=== PATIENT | female | born 1985 | race Caucasian/White ===

== ENCOUNTER → 2017-01-02 | Outpatient (CLI) | payer MEDICAID ==
--- NOTE | 2017-01-02 19:02 | RADIOLOGY REPORT (SQ) ---
EXAM DESCRIPTION: U/S [id number] TRNABD 1GES W/ODOP COMPLETED DATE/TIME: 01/02/2017 5:17 pm REASON FOR STUDY: Z34.82 ENCOUNTER FOR SUPRVSN OF NORMAL , SECOND TRI COMPARISON: None. TECHNIQUE: Transabdominal static and realtime grayscale images acquired of the pelvis. Additional se lected spectral and color Doppler images recorded. All images stored on PACs. bHCG: Not applicable. LIMITATIONS: None. FINDINGS: FETUS: Living intrauterine . EGA: 13 weeks 0 days ERNIE: 07/10/2017 FHR: 165 beats per minute. SUBCHORIONIC BLEED: No SIZE OF BLEED: Not applicable. UTERUS: Intrauterine gestation. No masses. 10.8 x 10.5 x 11.7 cm. CERVICAL LENGTH: Not measured. Closed. RIGHT ADNEXA: The right ovary measured 34 x 13 x 19 mm. There was no mass. There was a 14 x 21 x 13 mm possible hemorrhagic cyst. No adnexal free fluid. No adnexal masses. LEFT ADNEXA: Left ovary was not identified. No adnexal free fluid. Questionable 57 x 49 x 38 mm solid mass in the left adnexa. No blood flow was seen. No peristalsis was seen. FREE FLUID: None. OTHER: No other significant finding. IMPRESSION: 1. LIVING INTRAUTERINE . EGA 13 weeks 0 days 2. Questionable left adnexal mass. Trimester of : First - 0 to 13 weeks. TECHNICAL DOCUMENTATION: JOB ID: [id number] [employer]- All Rights Reserved
== END ==
LOC: RAD 15:44
PROVIDERS: ATTEND Nurse Practitioner Women's Health
DX: Z34.82 Encounter for supervision of other normal pregnancy, second trimester (principal)
CPT/HCPCS: 76801

== ENCOUNTER 2017-07-09 16:33 | Outpatient (CLI) | payer MEDICAID ==
--- NOTE | 2017-07-09 17:14 | Non Stress Test Report ---
Non Stress Test Datetime Report Generated by CPN: 07/09/2017 17:14 DEMOGRAPHIC Test Number: 1 EGA NST: 39.4 INDICATION Indication for Study: Ordered by Provider MONITORING Monitor Explained: Monitor Explained; Test Explained; Patient Verbalized Understanding Time on Monitor: 07/09/2017 16:53 Time off Monitor: 07/09/2017 17:13 NST Duration: 20 NST INTERVENTIONS NST Interventions: PO Hydration Physician Notified NST: Ki, CNM BABY A: [id number] BABY A Movement : Present Contraction Frequency : 0 FHR Baseline : 125 Accelerations : 15X15 Decelerations : None NST Review: Meets Criteria for Reactive NST NST Review and Verified By : Roland Anand RN NST Results: Reactive NST REPORT Report Trigger: Send Report
== END 2017-07-09 17:16 | disposition home or self-care (01) ==
LOC: LC 16:33
PROVIDERS: ATTEND Obstetrics & Gynecology Gynecology
PROC: 4A1HXCZ Monitoring of Products of Conception, Cardiac Rate, External Approach (ICD-10-PCS; principal; 2017-07-09)
DX: O47.1 False labor at or after 37 completed weeks of gestation (principal); Z3A.39 39 weeks gestation of pregnancy
CPT/HCPCS: 59025

== ENCOUNTER 2017-07-11 11:34 | Outpatient (CLI) | payer MEDICAID ==
[2017-07-11] MEDS ORDERED: RINGERS SOLUTION,LACTATED 1,000 ML IV PRN (12:16)
[2017-07-11] MEDS ORDERED: RINGERS SOLUTION,LACTATED 1,000 ML IV ONE (12:16)
[2017-07-11] MEDS ORDERED: HYDROXYZINE PAMOATE 50 MG CAPSULE ONE (12:56)
[2017-07-11] MEDS ORDERED: ACETAMINOPHEN WITH CODEINE #3 TABLET ONE (12:57)
[2017-07-11] MEDS ORDERED: ACETAMINOPHEN WITH CODEINE #3 TABLET PO ONE (12:58)
[2017-07-11] MEDS ORDERED: HYDROXYZINE PAMOATE 50 MG CAPSULE PO ONE (12:58)
[2017-07-11 13:17] LABS: APPEARANCE,URINE CLOUDY; BILIRUBIN,URINE NEGATIVE (NEGATIVE); GLUCOSE, URINE NEGATIVE (NEGATIVE); KETONES,URINE NEGATIVE (NEGATIVE); LEUKOCYTE ESTERASE,URINE LARGE (NEGATIVE); NITRITE,URINE NEGATIVE (NEGATIVE); PROTEIN,URINE NEGATIVE (NEGATIVE); URINE SPECIFIC GRAVITY 1.012; UROBILINOGEN,URINE NEGATIVE mg/dL (<2.0)
[2017-07-11 13:29] LABS: URINE BARBITURATES SCREEN NEGATIVE; URINE METHADONE SCREEN NEGATIVE; URINE OPIATES LOW NEGATIVE; URINE PHENCYCLIDINE SCREEN NEGATIVE
[2017-07-11] MEDS ORDERED: ACETAMINOPHEN 650 MG SUPP.RECT PR PRN (18:09)
[2017-07-11] MEDS ORDERED: GLYCERIN/WITCH HAZEL LEAF 1 EACH MED..PAD TP PRN (18:09)
[2017-07-11] MEDS ORDERED: DIPHENHYDRAMINE HCL 25 MG CAPSULE PO PRN (18:09)
[2017-07-11] MEDS ORDERED: PROMETHAZINE HCL INJ 25 MG/1 ML VIAL IV PRN (18:09)
[2017-07-11] MEDS ORDERED: NA PHOS,M-B/NA PHOS,DI-BA (ADULT) 133 ML ENEMA PR PRN (18:09)
[2017-07-11] MEDS ORDERED: ACETAMINOPHEN WITH CODEINE #3 TABLET PO PRN ×2 (18:09)
[2017-07-11] MEDS ORDERED: PROMETHAZINE HCL 25 MG TABLET PO PRN (18:09)
[2017-07-11] MEDS ORDERED: ZOLPIDEM TARTRATE 5 MG TABLET PO PRN (18:09)
[2017-07-11] MEDS ORDERED: BENZOCAINE/MENTHOL AEROSOL SPRAY 56 ML TOP PRN (18:09)
[2017-07-11] MEDS ORDERED: PSEUDOEPHEDRINE HCL 30 MG TABLET PO PRN (18:09)
[2017-07-11] MEDS ORDERED: MAGNESIUM HYDROXIDE SUSP 30 ML UDCUP PO PRN (18:09)
[2017-07-11] MEDS ORDERED: PROMETHAZINE HCL 25 MG SUPP.RECT PR PRN (18:09)
[2017-07-11] MEDS ORDERED: OXYTOCIN/NORMAL SALINE 20 UNIT/1,000 ML RTUINJ IV PRN (18:09)
[2017-07-11] MEDS ORDERED: MEASLES,MUMPS&RUBELLA VACC/PF 0.5 ML VIAL SUBCUT PRN (18:09)
[2017-07-11] MEDS ORDERED: DIBUCAINE 1% OINTMENT 28 GM TP PRN (18:09)
[2017-07-11] MEDS ORDERED: DIPH/PERTUSS(ACELL)/TETANUS VAC/PF 0.5 ML SYR (>=10YO) IM PRN (18:09)
[2017-07-11] MEDS ORDERED: IBUPROFEN 800 MG TABLET PO SCH (22:00)
[2017-07-11] MEDS ORDERED: FAMOTIDINE 20 MG TABLET PO SCH (22:00)
[2017-07-12] MEDS ORDERED: SENNOSIDES/DOCUSATE 8.6-50 MG 1 EACH TABLET PO SCH (10:00)
[2017-07-12] MEDS ORDERED: PRENATAL VITAMIN W DHA CAPSULE PO SCH (10:00)
[2017-07-12] MEDS ORDERED: FERROUS SULFATE 325 MG TABLET PO SCH (10:00)
[2017-07-12] MEDS ORDERED: DOCUSATE SODIUM 100 MG CAPSULE PO SCH (10:00)
== END 2017-07-11 13:10 | disposition home or self-care (01) ==
LOC: LC 11:34
PROVIDERS: ATTEND Obstetrics & Gynecology
PROC: 4A1HXCZ Monitoring of Products of Conception, Cardiac Rate, External Approach (ICD-10-PCS; principal; 2017-07-11)
DX: O47.1 False labor at or after 37 completed weeks of gestation (principal); Z3A.39 39 weeks gestation of pregnancy
CPT/HCPCS: 59025; 81005; 80307; J3490

== ENCOUNTER 2017-07-11 15:05 | Inpatient (IN) | payer MEDICAID ==
--- NOTE | 2017-07-11 15:11 | Non Stress Test Report ---
Non Stress Test Datetime Report Generated by CPN: 07/11/2017 15:10 DEMOGRAPHIC EGA NST: 39.6 INDICATION Indication for Study: Other Indication for Study (NST) Other: LABOR CHECK MONITORING Monitor Explained: Monitor Explained; Test Explained; Patient Verbalized Understanding Time on Monitor: 07/11/2017 11:54 Time off Monitor: 07/11/2017 12:50 NST Duration: 56 NST INTERVENTIONS NST Interventions: PO Hydration; Reposition Patient Physician Notified NST: K ASHLEY, NCM REVIEWED STRIP BABY A Movement : Present Contraction Frequency : 8-9 FHR Baseline : 125 Accelerations : 15X15 Decelerations : None Variability : Moderate 6-25bpm NST Review: Meets Criteria for Reactive NST NST Review and Verified By : ANN MelissaT Results: Reactive NST REPORT Report Trigger: Send Report
[2017-07-11] MEDS ORDERED: RINGERS SOLUTION,LACTATED 1,000 ML IV ONE (15:32)
[2017-07-11] MEDS ORDERED: RINGERS SOLUTION,LACTATED 1,000 ML IV PRN (15:32)
[2017-07-11] MEDS ORDERED: EPHEDRINE SULFATE INJ 50 MG/1 ML AMPULE ONE (16:01)
[2017-07-11] MEDS ORDERED: MISOPROSTOL 0.2 MG TABLET ONE (16:02)
[2017-07-11] MEDS ORDERED: FENTANYL/BUPIVACAINE/NS/PF 0 MCG/0 ML RTUINJ EPI ONE (16:02)
[2017-07-11] MEDS ORDERED: BUPIVACAINE HCL 0.25 % INJ/PF (2.5 MG/1 ML) 30 ML VIAL ONE (16:02)
[2017-07-11] MEDS ORDERED: LIDOCAINE 1% INJ-PF (10 MG/ML) 30 ML SDV ONE (16:03)
[2017-07-11] MEDS ORDERED: OXYTOCIN/NORMAL SALINE 20 UNIT/1,000 ML RTUINJ ONE (16:03)
[2017-07-11 16:11] LABS: ABSOLUTE BASOPHILS # (AUTO) 0.1 10^3/uL (0.0-0.2); ABSOLUTE LYMPHOCYTES (AUTO) 1.5 10^3/uL (0.5-4.7); ABSOLUTE MONOCYTES (AUTO) 0.9 10^3/uL (0.1-1.4); ABSOLUTE NEUT (AUTO) 16.7 10^3/uL (1.7-8.2); BASOPHILS % (AUTO) 0.3 % (0-2); EOSINOPHILS % (AUTO) 0.1 % (0-6); HEMATOCRIT 34.5 % (36.0-47.0); HEMOGLOBIN 11.8 g/dL (12.0-15.5); HGB HCT DIFFERENCE 0.9; MEAN CORPUSCULAR HEMOGLOBIN 30.2 pg (27.0-33.4); MEAN CORPUSCULAR HGB CONC 34.2 g/dL (32.0-36.0); MEAN CORPUSCULAR VOLUME 88 fl (80-97); MONOCYTES % (AUTO) 4.8 % (3-13); RED BLOOD COUNT 3.91 10^6/uL (3.72-5.28); RED CELL DISTRIBUTION WIDTH 15.2 % (11.5-14.0); SEGMENTED NEUTROPHILS % (AUTO) 86.8 % (42-78); WHITE BLOOD COUNT 19.2 10^3/uL (4.0-10.5)
[2017-07-11] MEDS ORDERED: ACETAMINOPHEN WITH CODEINE #3 TABLET PO PRN ×2 (16:37)
[2017-07-11] MEDS ORDERED: DIPH/PERTUSS(ACELL)/TETANUS VAC/PF 0.5 ML SYR (>=10YO) IM PRN (16:37)
[2017-07-11] MEDS ORDERED: OXYTOCIN/NORMAL SALINE 20 UNIT/1,000 ML RTUINJ IV PRN (16:37)
[2017-07-11] MEDS ORDERED: MEASLES,MUMPS&RUBELLA VACC/PF 0.5 ML VIAL SUBCUT PRN (16:37)
[2017-07-11] MEDS ORDERED: BENZOCAINE/MENTHOL AEROSOL SPRAY 56 ML TOP PRN (16:37)
[2017-07-11] MEDS ORDERED: ZOLPIDEM TARTRATE 5 MG TABLET PO PRN (16:37)
[2017-07-11] MEDS ORDERED: DIBUCAINE 1% OINTMENT 28 GM TP PRN (16:37)
[2017-07-11] MEDS ORDERED: IBUPROFEN 800 MG TABLET ONE (17:46)
--- NOTE | 2017-07-11 19:06 | Delivery Summary ---
Del Sum A-C Datetime Report Generated by CPN: 07/11/2017 19:06 DELIVERY PERSONNEL DELIVERY PERSONNEL: [id number] Delivery Doctor:: Mary Rooney CNM Nurse Felling Bucking Supervisor Certified:: Mary Rooney CNM Labor and Delivery Nurse:: Evie Diop RNdental assistant Nurse:: ANN Murray/FLOAT OPERATOR: [facility] Additional Personnel: : DE Kohler MATERNAL INFORMATION Delivery Anesthesia: None Medications After Delivery: Pitocin Bolus-Please Comment Meds After Delivery Comment: Pitocin 20 units in 1000 ml nss open for bolus Estimated Blood Loss (ml): 150 Maternal Complications: Precipitous Labor (<3hrs) Provider Comments: SVDVF over intact perineum, AROM at Complete/0 station, delivery UBALDO with nuchal cord that I was unable to reduce, baby was somersaulted through. Infant vigorous, placed on mothers abd. Cord clamped x 2 cut per pt. Placenta intact via marcellus, very calcified, sent to path. Apgars 9,9. EBL 150. Bleeding stable, mother and baby stable. LABOR SUMMARY EDC: 07/12/2017 00:00 No. Babies in Womb: 1 Attempted: No Labor Anesthesia: None LABOR INFORMATION Reason for Induction: Not Applicable Onset of Labor: 07/11/2017 15:00 Complete Dilatation: 07/11/2017 16:06 Oxytocin: N/A Group B Beta Strep: negative Steroids Given: None Reason Steroids Not Administered: Not Applicable MEMBRANES Membranes Rupture Method: Artificial Rupture of Membranes: 07/11/2017 16:04 Length of Rupture (hr): 0.03 Amniotic Fluid Color: Clear Amniotic Fluid Amount: Moderate Amniotic Fluid Odor: Normal STAGES OF LABOR Stage 1 hr: 1 Stage 1 min: 6 Stage 2 hr: 0 Stage 2 min: 0 Stage 3 hr: 0 Stage 3 min: 4 Total Time in Labor hr: 1 Total Time in Labor min: 10 VAGINAL DELIVERY Episiotomy: None Laceration #1: None Laceration Extension #1: N/A Other Laceration: 1* rt labia no repair needed, very superficial Laceration Repair: Not Applicable BABY A INFORMATION Infant Delivery Date/Time: 07/11/2017 16:06 Method of Delivery: Vaginal Born in Route : No : N/A Forceps: N/A Vacuum Extraction: N/A Shoulder Dystocia : No PRESENTATION/POSITION BABY A Presentation: Cephalic Cephalic Presentation: Vertex Vertex Position: Right Occipital Anterior Breech Presentation: N/A PLACENTA INFORMATION BABY A Placenta Delivery Time : 07/11/2017 16:10 Placenta Method of Delivery: Spontaneous Placenta Status: Delivered SCORES BABY A Heart Rate 1 min: >100 bpm Resp Effort 1 min: Good Cry Reflex Irritability 1 min: Cough or Sneeze or Pulls Away Muscle Tone 1 min: Active Motion Color 1 min: Body [place], Extremities Blue Resuscitation Effort 1 min: Tactile Stimulation SCORE 1 MIN: 9 Heart Rate 5 min: >100 bpm Resp Effort 5 min: Good Cry Reflex Irritability 5 min: Cough or Sneeze or Pulls Away Muscle Tone 5 min: Active Motion Color 5 min: Body [place], Extremities Blue Resuscitation Effort 5 min: N/A SCORE 5 MIN: 9 Resuscitation Effort 10 min: N/A INFANT INFORMATION BABY A Gestational Age at Delivery: 39.6 Gestational Status: Full Term- 39- 40.6 Weeks Infant Outcome : Liveborn Condition : Stable Infant Sex: Female IDENTIFICATION BABY A Infant Verification Date/Time: 07/11/2017 16:40 ID Band Number: [id number] Mother's Name Verified: Yes RN Verifying : CRafiq Andres, RN Additional Verifying Personnel: A. Chikis, RN WEIGHT/LENGTH BABY A Birthweight (gm): 3290 Infant Weight (lb): 7 Weight (oz): 4 Infant Length (in): 19.00 Infant Length (cm): 48.26 CORD INFORMATION BABY A No. Cord Vessels: 3 Nuchal Cord : Around Neck x1, Tight Cord Blood Taken: Yes-For Storage (Mom's Blood type +) Suction: None ASSESSMENT BABY A Infant Complications: None Physical Findings at Delivery: Within Normal Limits Respirations: Appears Normal Skin to Skin: Yes Skin to Skin Time (min): 60 [employer] Called : No Care By: Aba Hay Transferred To: Remains with Mother BABY B INFORMATION : N/A SIGNATURES Assignment: Jimmie Gao MD Signature: with User ID: [email or web address] : with User ID: [email or web address] : I was personally available for consultation and serving as supervising physician for the MLP.
--- NOTE | 2017-07-11 19:49 | Admission Physical ---
Datetime Report Generated by CPN: 07/11/2017 19:49 CURRENT ADMISSION Chief Complaint: Uterine Contractions Indication for Induction: Not Applicable Indication for Induction: Active Labor Admit Plan: Admit to Unit; Initiate Labor Protocol ALLERGIES Medication Allergies: Yes Medication Allergies: cefaclor/SV/Hives (07/11/2017); azithromycin/SV/Hives (07/11/2017) Medication Allergies: cefaclor/SV/Hives (11/27/2013); azithromycin/SV/Hives (11/27/2013) Latex: No Latex Allergies Food Allergies: NKA Environmental Allergies: NKA OBSTETRICAL HISTORY EDC: 07/12/2017 00:00 : 6 Para: 5 Term: 4 : 1 SAB: 0 IAB: 0 Ectopic: 0 Livin Cesareans: 0 VBACs: 0 Multiple Births: 0 Gestational Diabetes: No Rh Sensitization: No Incompetent Cervix: No CORRINE: No Infertility: No ART Treatment: No Uterine Anomaly: No IUGR: No Hx Previous C/S: No Macrosomia: No Hx Loss/Stillborn: No PIH: No Hx : No Placenta Previa/Abruption: No Depression/PP Depression: Yes PTL/PROM: No Post Hemorrhage: Yes Current Procedures: NST Obstetrical History Comments: G1 male 8lbs 5oz at 39 weeks G2 male 6lbs at 35 weeks. Vanishing twin, hemorrhage, blood transfusion G3 male at 38 weeks 5lbs 8oz G4 male at 40.2 7lbs 8oz. GBS + G5 male at 39.1 8lbs 7oz GBS+, nuchal cordX1 loose, body_leg G6 current SEE RECORDS Alcohol: No Marijuana : No Cocaine: No Other Illicit Drugs: No Cigarettes: Current Everyday Smoker. [id number] MEDICAL HISTORY Diabetes: No Blood Transfusion: Yes Pulmonary Disease (Asthma, TB): Yes Breast Disease: No Hypertension: No [place] Surgery: No Heart Disease: No Hosp/Surgery: Yes Autoimmune Disorder: No Anesthetic Complications: No Kidney Disease: No Abnormal Pap Smear: No Neuro/Epilepsy: No Psychiatric Disorders: No Other Medical Diseases: No Hepatitis/Liver Disease: No Significant Family History: No Varicosities/Phlebitis: No Trauma/Violence : No Thyroid Dysfunction: No Medical History Comments: Migraines, anemia, INFECTIOUS HISTORY Gonorrhea: No Genital Herpes: No Chlamydia: No Tuberculosis: No Syphilis: No Hepatitis: No HIV/AIDS Exposure: No Rash or Viral Illness: No HPV: Yes PHYSICAL EXAM General: Normal HEENT: Deferred Neurologic: Deferred Thyroid: Deferred Heart: Normal Lungs: Normal Breast: Deferred Back: Deferred Abdomen: Normal Genitourinary Exam: Deferred Extremities: Deferred DTRs: Normal Pelvic Type: Adequate Physical Exam Comments: Exam per RN, was 2 cm earlier today Vital Signs: Reviewed FETUS A EGA: 39.6 Monitoring: External US FHR- Baseline: 130 Variability: Moderate 6-25bpm Decelerations: None FHR Category: Category I Presentation: Vertex PLANS FOR LABOR AND DELIVERY Labor and Delivery: None Pain Management: Epidural Feeding Preference: Breast Benefit of Breast Feed Discussed: Yes Circumcision: N/A INFORMED CONSENT Assignment: Jimmie Gao MD Signature: with User ID: [email or web address] : with User ID: [email or web address]
[2017-07-11] MEDS: FERROUS SULFATE 325 MG TABLET PO SCH (20:46)
[2017-07-11] MEDS: DOCUSATE SODIUM 100 MG CAPSULE PO SCH (20:46)
[2017-07-11] MEDS ORDERED: IBUPROFEN 800 MG TABLET PO SCH (22:00)
[2017-07-12] MEDS: IBUPROFEN 800 MG TABLET PO SCH ×3 (02:50→17:22)
[2017-07-12 07:29] LABS: HEMATOCRIT 31.3 % (36.0-47.0); HEMOGLOBIN 10.7 g/dL (12.0-15.5); HGB HCT DIFFERENCE 0.8; MEAN CORPUSCULAR HEMOGLOBIN 30.5 pg (27.0-33.4); MEAN CORPUSCULAR VOLUME 90 fl (80-97); RED BLOOD COUNT 3.49 10^6/uL (3.72-5.28); RED CELL DISTRIBUTION WIDTH 15.2 % (11.5-14.0)
--- NOTE | 2017-07-12 10:33 | PDOC PROGRESS REPORT ---
Subjective-OB Subjective: Post Delivery Day: 32 year old. Denies any needs at this time, lochia decreasing, + tolerating po w/o difficulty, + flatus, +BM Physical Exam (OB) Vital Signs: Temp Pulse Resp BP Pulse Ox 98.0 F 71 17 114/63 100 07/12/17 08:01 07/12/17 08:01 07/12/17 08:01 07/12/17 08:01 07/12/17 08:01 Intake & Output 07/11/17 07/12/17 07/13/17 06:59 06:59 06:59 Weight 57.14 kg - General General Appearance: Appears well In distress: None - Lochia Lochia Amount: Scant < 10 ml Lochia Color: Rubra/Red - Abdomen Description: Soft, Round Hernia Present: No Fundal Description: Firm, Midline Fundal Height: u/u - u/2 - Psychological Associated symptoms: Normal affect, Normal mood Objective-Diagnostic Laboratory: 07/12/17 07:03 07/11/17 07/11/17 07/12/17 15:48 15:48 07:03 WBC 19.2 H 16.0 H RBC 3.91 3.49 L Hgb 11.8 L 10.7 L Hct 34.5 L 31.3 L MCV 88 90 MCH 30.2 30.5 MCHC 34.2 34.0 RDW 15.2 H 15.2 H Plt Count 261 235 Seg Neutrophils % 86.8 H Lymphocytes % 8.0 L Monocytes % 4.8 Eosinophils % 0.1 Basophils % 0.3 Absolute Neutrophils 16.7 H Absolute Lymphocytes 1.5 Absolute Monocytes 0.9 Absolute Eosinophils 0.0 Absolute Basophils 0.1 Blood Type A POSITIVE Antibody Screen NEGATIVE Assessment and Plan(PN) Plan:: Dsicharge to home tomorrow when baby ready. - Time Spent with Patient Time with patient: Less than 15 minutes Medications reviewed and adjusted accordingly: Yes - Disposition Anticipated Discharge: Home Within: within 24 hours Disposition: Discharge to home tomorrow when baby ready. She declines contraception. She is at this time and reports that breast feeding is going well.
[2017-07-12] MEDS: FERROUS SULFATE 325 MG TABLET PO SCH ×2 (11:07→17:21)
[2017-07-12] MEDS: DOCUSATE SODIUM 100 MG CAPSULE PO SCH ×2 (11:07→17:21)
[2017-07-12] MEDS: SENNOSIDES/DOCUSATE 8.6-50 MG 1 EACH TABLET PO SCH (11:08)
[2017-07-12] MEDS: PRENATAL VITAMIN W DHA CAPSULE PO SCH (11:08)
[2017-07-13] MEDS: IBUPROFEN 800 MG TABLET PO SCH ×2 (05:20→10:02)
[2017-07-13 09:23] VITALS: BP 114/63
[2017-07-13] MEDS: DOCUSATE SODIUM 100 MG CAPSULE PO SCH (10:01)
[2017-07-13] MEDS: FERROUS SULFATE 325 MG TABLET PO SCH (10:01)
[2017-07-13] MEDS: PRENATAL VITAMIN W DHA CAPSULE PO SCH (10:02)
[2017-07-13] MEDS: SENNOSIDES/DOCUSATE 8.6-50 MG 1 EACH TABLET PO SCH (10:02)
--- NOTE | 2017-07-13 12:03 | PDOC DISCHARGE SUMMARY ---
Final Diagnosis Discharge Date: 07/13/17 - Final Diagnosis (1) Acute blood loss anemia Is this a current diagnosis for this admission?: Yes (2) Is this a current diagnosis for this admission?: Yes (3) Delivery normal Is this a current diagnosis for this admission?: Yes (4) Smoker Is this a current diagnosis for this admission?: Yes (5) Positive GBS test Is this a current diagnosis for this admission?: Yes (6) Labor, precipitous, delivered Is this a current diagnosis for this admission?: Yes Discharge Data - Discharge Medication Home Medications: No122/Iron/Folic Acid [ Multi Tablet] 1 each PO DAILY 07/11/17 Reason(s) for Admission: Onset of Labor Procedures: Ultrasound Intrapartum Procedure(s): Spontaneous Vaginal Delivery Complication(s): Laceration-Labial - Diagnosis Test Laboratory: Temp Pulse Resp BP Pulse Ox 97.9 F 61 16 114/63 100 07/13/17 09:23 07/13/17 09:23 07/13/17 09:23 07/13/17 09:23 07/13/17 09:23 07/11/17 07/12/17 15:48 07:03 RBC 3.91 3.49 L Hgb 11.8 L 10.7 L Hct 34.5 L 31.3 L - Discharge information/Instructions Discharge Activity: Activity As Tolerated, Balance Activity w/Rest, No Lifting Over 10 Pounds, No Lifting/Push/Pulling, Pelvic Rest, No tub bath Discharge Diet: As Tolerated, Regular Disposition: HOME, SELF-CARE Follow up with: [facility] in: 4, Weeks
== END 2017-07-13 13:52 | disposition home or self-care (01) | DRG 775 ==
LOC: LC 15:05 → LR 15:39 → UNDOADMIN 15:39 → 2S 19:48
PROVIDERS: ADMIT Obstetrics & Gynecology; ATTEND Obstetrics & Gynecology
PROC: 10E0XZZ Delivery of Products of Conception, External Approach (ICD-10-PCS; principal; 2017-07-11)
PROC: 10907ZC Drainage of Amniotic Fluid, Therapeutic from Products of Conception, Via Natural or Artificial Opening (ICD-10-PCS; 2017-07-11)
PROC: 4A1HXCZ Monitoring of Products of Conception, Cardiac Rate, External Approach (ICD-10-PCS; 2017-07-11)
DX: O99.824 Streptococcus B carrier state complicating childbirth (principal); D62 Acute posthemorrhagic anemia; O99.02 Anemia complicating childbirth; O99.334 Smoking (tobacco) complicating childbirth; F17.210 Nicotine dependence, cigarettes, uncomplicated; O62.3 Precipitate labor; O70.0 First degree perineal laceration during delivery; O99.52 Diseases of the respiratory system complicating childbirth; J45.909 Unspecified asthma, uncomplicated; O99.354 Diseases of the nervous system complicating childbirth; G43.909 Migraine, unspecified, not intractable, without status migrainosus; O69.1XX0 Labor and delivery complicated by cord around neck, with compression, not applicable or unspecified; Z28.21 Immunization not carried out because of patient refusal; Z88.1 Allergy status to other antibiotic agents; Z3A.39 39 weeks gestation of pregnancy; Z37.0 Single live birth
CPT/HCPCS: 36415; 85025; 85027; 86592; 86850; 86900; 86901; J2590; J3490

== ENCOUNTER 2019-08-12 11:18 | Emergency (ER) | payer MEDICAID ==
--- NOTE | 2019-08-12 11:26 | ER Document Report ---
ED Medical Screen (RME) - General Chief Complaint: Abdominal Pain Stated Complaint: UPPER ABDOMINAL/SIDE PAIN/FEVER Time Seen by Provider: 08/12/19 11:24 Primary Care Provider: JACINTA GONZALES MD [Primary Care Provider] - Follow up as needed Mode of Arrival: Ambulatory Information source: Patient Notes: 34-year-old female presents to ED for complaint of pain to the right upper quadrant right flank area. She states that she has had it multiple times over the last year denies a history of kidney stones she is about 23 weeks . She states she started having the same pain well before she was . She states that this happened about 6-10 times. She has not been evaluated for a kidney stone. I have greeted and performed a rapid initial assessment of this patient. A comprehensive ED assessment and evaluation of the patient, analysis of test results and completion of medical decision making process will be conducted by an additional ED providers. TRAVEL OUTSIDE OF THE [place] IN LAST 30 DAYS: No - Related Data Allergies/Adverse Reactions: azithromycin [Azithromycin] Allergy (Severe, Verified 08/12/19 11:24) Hives cefaclor [From Ceclor] Allergy (Severe, Verified 08/12/19 11:24) Hives Past Medical History - Immunizations Hx Diphtheria, Pertussis, Tetanus Vaccination: Yes - received during Doctor's Discharge - Discharge Referrals: JACINTA GONZALES MD [Primary Care Provider] - Follow up as needed
[2019-08-12 11:44] LABS: ABSOLUTE MONOCYTES (AUTO) 0.9 10^3/uL (0.1-1.4); ABSOLUTE NEUT (AUTO) 7.6 10^3/uL (1.7-8.2); BASOPHILS % (AUTO) 0.3 % (0-2); EOSINOPHILS % (AUTO) 0.4 % (0-6); HEMATOCRIT 32.1 % (36.0-47.0); HEMOGLOBIN 11.1 g/dL (12.0-15.5); LYMPHOCYTES % (AUTO) 10.9 % (13-45); MEAN CORPUSCULAR HEMOGLOBIN 31.8 pg (27.0-33.4); MEAN CORPUSCULAR HGB CONC 34.6 g/dL (32.0-36.0); MEAN CORPUSCULAR VOLUME 92 fl (80-97); MONOCYTES % (AUTO) 9.3 % (3-13); PLATELET COUNT 192 10^3/uL (150-450); RED BLOOD COUNT 3.49 10^6/uL (3.72-5.28); RED CELL DISTRIBUTION WIDTH 14.4 % (11.5-14.0); SEGMENTED NEUTROPHILS % (AUTO) 79.1 % (42-78); TOTAL CELLS COUNTED % (AUTO) 100 %; WHITE BLOOD COUNT 9.6 10^3/uL (4.0-10.5)
[2019-08-12 11:58] LABS: APPEARANCE,URINE SLIGHTLY-CLOUDY; BILIRUBIN,URINE NEGATIVE (NEGATIVE); COLOR,URINE YELLOW; GLUCOSE, URINE NEGATIVE (NEGATIVE); KETONES,URINE NEGATIVE (NEGATIVE); PROTEIN,URINE NEGATIVE (NEGATIVE); URINE SPECIFIC GRAVITY 1.006; UROBILINOGEN,URINE NEGATIVE mg/dL (<2.0)
[2019-08-12 12:02] LABS: ALBUMIN 3.6 g/dL (3.5-5.0); ALKALINE PHOSPHATASE 67 U/L (38-126); ANION GAP 7 (5-19); ASPARTATE AMINO TRANSFERASE 15 U/L (14-36); BILIRUBIN,DIRECT 0.2 mg/dL (0.0-0.4); BILIRUBIN,TOTAL 0.3 mg/dL (0.2-1.3); BLOOD UREA NITROGEN 4 mg/dL (7-20); CALCIUM 8.9 mg/dL (8.4-10.2); CARBON DIOXIDE 20 mmol/L (22-30); CHLORIDE 107 mmol/L (98-107); GLUCOSE 92 mg/dL (75-110); POTASSIUM 3.9 mmol/L (3.6-5.0); TOTAL PROTEIN 6.9 g/dL (6.3-8.2)
[2019-08-12] MEDS ORDERED: ACETAMINOPHEN 325 MG TABLET PO ONE (12:31)
--- NOTE | 2019-08-12 13:53 | RADIOLOGY REPORT (SQ) ---
EXAM DESCRIPTION: U/S ABDOMEN LIMITED W/O DOP COMPLETED DATE/TIME: 08/12/2019 1:21 pm REASON FOR STUDY: ruq pain COMPARISON: None. TECHNIQUE: Dynamic and static grayscale images acquired of the abdomen and recorded on PACS. Additio nal selected color Doppler and spectral images recorded. LIMITATIONS: None. FINDINGS: PANCREAS: No masses. Visualized pancreatic duct normal caliber. LIVER: The measures 16.2 cm in length, normal size. No masses. Echotexture normal. LIVER VASCULATURE: Normal directional flow of the main portal vein and hepatic veins. GALLBLADDER: No stones. The gallbladder wall measures 3.1 mm, mild diffuse thickening of the gallbla dder wall. No pericholecystic fluid. ULTRASOUND-DETECTED KURTZ'S SIGN: Negative. INTRAHEPATIC DUCTS AND COMMON DUCT: CBD measures 4.4 mm in diameter, normal. The intrahepatic ducts normal caliber. No filling defects. RIGHT KIDNEY: The right kidney measures 13.4 cm in length, normal size. Normal echogenicity. Mild dilatation of the renal pelvis. No solid or suspicious masses. PERITONEAL AND RIGHT PLEURAL SPACE: No ascites or effusions. OTHER: Single IUP is identified. heart rate 163 bpm. IMPRESSION: 1. Mild diffuse thickening of the gallbladder wall. No evidence of gallstones. 2. Mild dilatation of the right renal pelvis. 3. Single viable IUP. TECHNICAL DOCUMENTATION: JOB ID: [id number] [employer]- All Rights Reserved Reading location - IP/workstation name: [email or web address]
[2019-08-12 17:01] VITALS: BP 101/52
--- NOTE | 2019-08-12 17:09 | PDOC CONSULTATION ---
Consultation Consult Date: 08/12/19 Provider Consulted: BRYAN IGNACIO Consult reason:: Abdominal pains History of Present Illness History of Present Illness: JOSELITO ROSAS is a 34 year old female who is 21 weeks complaining of right upper quadrant pains radiating to the sides into the hip noted today. She did have fever the whole day yesterday. Denies any nausea or vomiting diarrhea no constipation no dysuria. Her urine however today showed large leukocyte esterase. She did have the same symptoms on the left side a couple of weeks ago. She had an ultrasound of the right upper upper quadrant today which showed gallbladder wall slightly thickened to about 3.1mm but no stones and normal common bile duct diameter. Social History Smoking Status: Current Every Day Smoker Family History Parental Family History Reviewed: Yes Children Family History Reviewed: No Sibling(s) Family History Reviewed.: No Medication/Allergy Home Medications: No122/Iron/Folic Acid [ Multi Tablet] 1 each PO DAILY 07/11/17 Docusate Sodium [Colace 100 mg Capsule] 100 mg PO BID #60 capsule 07/13/17 Ferrous Sulfate [Feosol 325 mg Tablet] 325 mg PO BID #60 tablet 07/13/17 Ibuprofen [Motrin 800 mg Tablet] 800 mg PO Q8HP PRN #30 tablet 07/13/17 Allergies/Adverse Reactions: azithromycin [Azithromycin] Allergy (Severe, Verified 08/12/19 11:24) Hives cefaclor [From Ceclor] Allergy (Severe, Verified 08/12/19 11:24) Hives Review of Systems Constitutional: PRESENT: fever(s) Respiratory: PRESENT: other - No cough no chest pain Gastrointestinal: PRESENT: abdominal pain Genitourinary: PRESENT: other - No dysuria Physical Exam Vital Signs: Temp Pulse Resp BP Pulse Ox 98.9 F 108 H 16 117/61 99 08/12/19 11:23 08/12/19 11:23 08/12/19 11:23 08/12/19 11:23 08/12/19 11:23 Intake & Output 08/11/19 08/12/19 08/13/19 06:59 06:59 06:59 Weight 64 kg General appearance: PRESENT: no acute distress, well-developed, well-nourished Head exam: PRESENT: atraumatic, normocephalic Eye exam: PRESENT: conjunctiva pink, EOMI, PERRLA. ABSENT: scleral icterus Ear exam: PRESENT: normal external ear exam Mouth exam: PRESENT: moist, tongue midline Neck exam: ABSENT: carotid bruit, JVD, lymphadenopathy, thyromegaly Respiratory exam: PRESENT: clear to auscultation nichole. ABSENT: rales, rhonchi, wheezes Cardiovascular exam: PRESENT: RRR. ABSENT: diastolic murmur, rubs, systolic murmur Pulses: PRESENT: normal dorsalis pedis pul Vascular exam: PRESENT: normal capillary refill GI/Abdominal exam: PRESENT: normal bowel sounds, soft, other - Minimal tender ness along the right upper quadrant more laterally and towards the right hip. ABSENT: distended, guarding, mass, organolmegaly, rebound, tenderness Rectal exam: PRESENT: deferred Extremities exam: PRESENT: full ROM. ABSENT: calf tenderness, clubbing, pedal edema Neurological exam: PRESENT: alert, awake, oriented to person, oriented to place, oriented to time, oriented to situation, CN II-XII grossly intact. ABSENT: mot or sensory deficit Psychiatric exam: PRESENT: appropriate affect, normal mood. ABSENT: homicidal ideation, suicidal ideation Skin exam: PRESENT: dry, intact, warm. ABSENT: cyanosis, rash Results Laboratory Results: 08/12/19 11:30 08/12/19 11:30 08/12/19 08/12/19 08/12/19 11:30 11:30 11:30 WBC 9.6 RBC 3.49 L Hgb 11.1 L Hct 32.1 L MCV 92 MCH 31.8 MCHC 34.6 RDW 14.4 H Plt Count 192 Seg Neutrophils % 79.1 H Sodium 134.4 L Potassium 3.9 Chloride 107 Carbon Dioxide 20 L Anion Gap 7 BUN 4 L Creatinine 0.36 L Est GFR ( Amer) > 60 Glucose 92 Calcium 8.9 Total Bilirubin 0.3 AST 15 Alkaline Phosphatase 67 Total Protein 6.9 Albumin 3.6 Lipase Urine Color YELLOW Urine Appearance SLIGHTLY-CLOUDY Urine pH 8.0 Ur Specific [place] 1.006 Urine Protein NEGATIVE Urine Glucose (UA) NEGATIVE Urine Ketones NEGATIVE Urine Blood MODERATE H Urine RBC (Auto) 4 08/12/19 11:30 WBC RBC Hgb Hct MCV MCH MCHC RDW Plt Count Seg Neutrophils % Sodium Potassium Chloride Carbon Dioxide Anion Gap BUN Creatinine Est GFR ( Amer) Glucose Calcium Total Bilirubin AST Alkaline Phosphatase Total Protein Albumin Lipase 29.5 Urine Color Urine Appearance Urine pH Ur Specific [place] Urine Protein Urine Glucose (UA) Urine Ketones Urine Blood Urine RBC (Auto) Impressions: Abdomen Ultrasound 08/12/19 12:29 IMPRESSION: 1. Mild diffuse thickening of the gallbladder wall. No evidence of gallstones. 2. Mild dilatation of the right renal pelvis. 3. Single viable IUP. Assessment & Plan - Diagnosis (1) UTI (urinary tract infection) Is this a current diagnosis for this admission?: Yes (2) Is this a current diagnosis for this admission?: Yes (3) Smoker Is this a current diagnosis for this admission?: Yes - Time Time Spent: 30 to 50 Minutes - Plan Summary Plan Summary: 34-year-old female 21weeks with intrauterine complaint of right upper quadrant pains radiating to the right hip with fever yesterday. Ultrasound showed slightly thickened gallbladder wall about 3 mm and also light slightly dilated right ureter. Urinalysis showed increased leukocyte esterase indicating a UTI. Impression abdominal pains unlikely due to gallbladder disease. Most likely due to UTI with reflux to the right kidney area. Discussed with Dr. Ramirez ER physician will treat the UTI with antibiotics which could also be a treatment if she does have any acute cholecystitis which is unlikely. At any rate patient advised to come back if the pains get worse or with nausea vomiting or persistent fever.
--- NOTE | 2019-08-12 17:16 | ER Document Report ---
ED General - General Chief Complaint: Abdominal Pain Stated Complaint: UPPER ABDOMINAL/SIDE PAIN/FEVER Time Seen by Provider: 08/12/19 11:24 Primary Care Provider: JACINTA GONZALES MD [ACTIVE STAFF] - Follow up as needed Mode of Arrival: Ambulatory TRAVEL OUTSIDE OF THE [place] IN LAST 30 DAYS: No - HPI Notes: 34F presents ambulatory says almost 22 wks EGA but who comes for recurrence of RUQ cfampy pain. she doesn't think it's necessarily related to eating. no h/o GB or appendix disease/surgeryt. other 2 pregnancies, w/o obtetric complications, only last one by Rx of GBS in 3rd trimester. she denies n/v. says pain doesn't radiate. it'll last on/off hours then improves. deneis dyspareunia, vb,vd, dyschezia. no brbpr or melena has maybe had less frequent BMs but otherwise no cramping in other abdominal regions. no trauma. no urinary complaints. also denies new sob, chest pain, skin changes, f/c/s. - Related Data Allergies/Adverse Reactions: azithromycin [Azithromycin] Allergy (Severe, Verified 08/12/19 11:24) Hives cefaclor [From Ceclor] Allergy (Severe, Verified 08/12/19 11:24) Hives Past Medical History - General Information source: Patient - Social History Smoking Status: Current Every Day Smoker Family History: Reviewed & Not Pertinent Patient has suicidal ideation: No Patient has homicidal ideation: No - Immunizations Hx Diphtheria, Pertussis, Tetanus Vaccination: Yes - received during Review of Systems - Review of Systems Constitutional: No symptoms reported, See HPI EENT: No symptoms reported Cardiovascular: No symptoms reported Respiratory: No symptoms reported Gastrointestinal: See HPI Genitourinary: No symptoms reported, See HPI Female Genitourinary: No symptoms reported, See HPI Musculoskeletal: No symptoms reported. denies: Back pain, Joint pain, Joint swelling, Muscle pain, Neck pain, Deformity, Leg swelling, Ankle swelling Skin: No symptoms reported Hematologic/Lymphatic: No symptoms reported Neurological/Psychological: No symptoms reported Physical Exam - Vital signs Vitals: Temp Pulse Resp BP Pulse Ox 98.9 F 108 H 16 117/61 99 08/12/19 11:23 08/12/19 11:23 08/12/19 11:23 08/12/19 11:23 08/12/19 11:23 Interpretation: Normal - General General appearance: Appears well, Alert In distress: None - HEENT Head: Normocephalic, Atraumatic Eyes: Normal Pupils: PERRL - Respiratory Respiratory status: No respiratory distress Chest status: Nontender Breath sounds: Normal Chest palpation: Normal - Cardiovascular Rhythm: Regular Heart sounds: Normal auscultation Murmur: No - Abdominal Inspection: Gravid female. No: Wounds Distension: No: Tympanitic, Distended bladder Bowel sounds: Normal Tenderness: Tender, Preciado's sign - ttp ruq w/o peritoneal signs such as rebound/guarding. No: Guarding, Rebound Organomegaly: No organomegaly - Back Back: Normal, Nontender. No: Deformity/step-off, CVA tenderness, Vertebra tenderness, Scars, Wounds - Extremities General upper extremity: Normal inspection, Nontender, Normal color, Normal ROM, Normal temperature General lower extremity: Normal inspection, Nontender, Normal color, Normal ROM, Normal temperature, Normal weight bearing. No: Davide's sign - Neurological Neuro grossly intact: Yes Cognition: Normal Orientation: AAOx4 [place] Coma Scale Eye Opening: Spontaneous [place] Coma Scale Verbal: Oriented [place] Coma Scale Motor: Obeys Commands [place] Coma Scale Total: 15 Speech: Normal Motor strength normal: LUE, RUE, LLE, RLE Sensory: Normal - Psychological Associated symptoms: Normal affect, Normal mood - Skin Skin Temperature: Warm Skin Moisture: Dry Skin Color: Normal Course - Re-evaluation Re-evalutation: Us did show thickening of GB wall to 3-4mm w/o evidence of stones, single IUP visualized. also showed some mild dilation R renal pelvis. urine only significant for +bacteria, some ketones and some microscopic hematuria. pt didn't have pain while observed in ED. surgery eval pt and her u/s. please see his note for consult. she and i discussed i would treat her bacteruria w/ 7day course abx. we discussed that if she had fevr >100.4 reutrn of severe pain or i nability/difficulty holding down her po abx to return. otherwise she is to f/u w/ obgyn as planned for intermittent care. - Vital Signs Vital signs: Temp Pulse Resp BP Pulse Ox 97.8 F 90 16 101/52 L 100 01/07/20 17:57 08/12/19 17:57 08/12/19 17:57 08/12/19 17:57 08/12/19 17:57 - Laboratory Result Diagrams: 08/12/19 11:30 08/12/19 11:30 Laboratory results interpreted by me: 08/12/19 08/12/19 08/12/19 11:30 11:30 11:30 RBC 3.49 L Hgb 11.1 L Hct 32.1 L RDW 14.4 H Lymph % (Auto) 10.9 L Seg Neutrophils % 79.1 H Sodium 134.4 L Carbon Dioxide 20 L BUN 4 L Creatinine 0.36 L Beta HCG, Quant 34841.00 H Urine Blood MODERATE H Leukocyte Esterase Rfl LARGE H Discharge - Discharge Clinical Impression: Asymptomatic bacteriuria during , Abdominal pain, Thickening of wall of gallbladder Condition: Good Disposition: HOME, SELF-CARE Additional Instructions: In the ER today your gallbladder wall was thickened on your ultrasound. You did not have any fevers while here and your vital signs looked within normal limits. We had the surgeon evaluate you to make sure he did not think you had any evidence of gallbladder infection that is ongoing. You have no stones in the gallbladder which is more commonly the reason for an infection but sometimes without stones there can be still infection. You do have evidence also in the urine of some bacteria and white blood cells, in we always would treat this with an antibiotic. I will give you 7 days of 2 times a day antibiotic please take this entire course at same time each day. Also it is imperative that you watch for fevers greater than 100.4 they continue after a day of antibiotics or severe or persistent pain in the abdomen or vomiting (inability to hold down your antibiotics). Please also continue to eat and drink well and get rest. If you were to begin to have fevers I would want you to be evaluated immediately to reconsider if the urine infection was extending into the kidney, and to reconsider if the gallbladder looks infected or is worsened. Prescriptions: Cephalexin [Cephalexin 500 MG Tablet] 500 mg PO BID 7 Days #14 tablet Referrals: JACINTA GONZALES MD [ACTIVE STAFF] - Follow up as needed
[2019-08-12] MEDS ORDERED: CEPHALEXIN 500 MG CAPSULE PO ONE (17:23)
== END 2019-08-12 17:59 | disposition home or self-care (01) ==
LOC: ER 11:18
DX: O99.611 Diseases of the digestive system complicating pregnancy, first trimester (principal); K82.9 Disease of gallbladder, unspecified; O26.891 Other specified pregnancy related conditions, first trimester; R10.11 Right upper quadrant pain; R10.811 Right upper quadrant abdominal tenderness; R82.71 Bacteriuria; R31.29 Other microscopic hematuria; O99.331 Smoking (tobacco) complicating pregnancy, first trimester; F17.200 Nicotine dependence, unspecified, uncomplicated; Z3A.11 11 weeks gestation of pregnancy; Z79.899 Other long term (current) drug therapy; Z88.1 Allergy status to other antibiotic agents
CPT/HCPCS: 99284; 36415; 87086; 84702; 83690; 85025; 87088; 80053; 81001; 87186; 76705; J3490

== ENCOUNTER 2019-10-25 10:09 | Outpatient (CLI) | payer MEDICAID ==
[2019-10-25 11:01] LABS: AMORPHOUS SEDIMENT,URINE TRACE /HPF; APPEARANCE,URINE SLIGHTLY-CLOUDY; BILIRUBIN,URINE NEGATIVE (NEGATIVE); COLOR,URINE YELLOW; GLUCOSE, URINE NEGATIVE (NEGATIVE); KETONES,URINE NEGATIVE (NEGATIVE); LEUKOCYTE ESTERASE,URINE NEGATIVE (NEGATIVE); NITRITE,URINE NEGATIVE (NEGATIVE); PROTEIN,URINE NEGATIVE (NEGATIVE); URINE SPECIFIC GRAVITY 1.014
[2019-10-25 11:21] LABS: URINE AMPHETAMINES SCREEN NEGATIVE; URINE BARBITURATES SCREEN NEGATIVE; URINE BENZODIAZEPINES SCREEN NEGATIVE; URINE COCAINE SCREEN NEGATIVE; URINE MARIJUANA (THC) SCREEN NEGATIVE; URINE METHADONE SCREEN NEGATIVE; URINE PHENCYCLIDINE SCREEN NEGATIVE
[2019-10-25] MEDS ORDERED: HYDROXYZINE PAMOATE 50 MG CAPSULE PO ONE (12:05)
[2019-10-25] MEDS ORDERED: HYDROXYZINE PAMOATE 50 MG CAPSULE ONE (12:09)
== END 2019-10-25 12:19 | disposition home or self-care (01) ==
LOC: LC 10:09
PROVIDERS: ATTEND Obstetrics & Gynecology Gynecology
PROC: 4A1HXCZ Monitoring of Products of Conception, Cardiac Rate, External Approach (ICD-10-PCS; principal; 2019-10-25)
DX: O47.03 False labor before 37 completed weeks of gestation, third trimester (principal); Z3A.31 31 weeks gestation of pregnancy
CPT/HCPCS: 81001; 80307; 59899; J3490

== ENCOUNTER 2019-12-31 23:58 | Inpatient (IN) | payer MEDICAID ==
[2020-01-01] MEDS ORDERED: RINGERS SOLUTION,LACTATED 1,000 ML IV ONE (00:32)
[2020-01-01] MEDS ORDERED: RINGERS SOLUTION,LACTATED 1,000 ML IV PRN (00:32)
[2020-01-01] MEDS ORDERED: PENICILLIN G POTASSIUM 5,000,000 UNIT in DEXTROSE 5%-WATER 100 ML IV ONE (00:32)
--- NOTE | 2020-01-01 00:33 | Admission Physical ---
Datetime Report Generated by CPN: 01/01/2020 00:32 CURRENT ADMISSION Chief Complaint: Uterine Contractions Indication for Induction: Not Applicable Admit Impression : Term, Intrauterine Admit Plan: Initiate Labor Protocol ALLERGIES Medication Allergies: Yes Medication Allergies: cefaclor/SV/Hives (10/25/2019); azithromycin/SV/Hives (10/25/2019) Latex: No Latex Allergies Food Allergies: none Environmental Allergies: none OBSTETRICAL HISTORY EDC: 12/21/2019 00:00 : 7 Para: 6 Term: 5 : 1 SAB: 0 IAB: 0 [place] PHYSICAL EXAM General: Normal HEENT: Normal Neurologic: Normal Thyroid: Normal Heart: Normal Lungs: Normal Breast: Deferred Back: Normal Abdomen: Normal Genitourinary Exam: Normal Extremities: Normal DTRs: Normal Pelvic Type: Adequate FETUS A EGA: 41.4 INFORMED CONSENT Signature: with User ID: [email or web address]
[2020-01-01 00:53] LABS: ABSOLUTE BASOPHILS # (AUTO) 0.1 10^3/uL (0.0-0.2); ABSOLUTE LYMPHOCYTES (AUTO) 1.4 10^3/uL (0.5-4.7); ABSOLUTE MONOCYTES (AUTO) 0.8 10^3/uL (0.1-1.4); ABSOLUTE NEUT (AUTO) 12.9 10^3/uL (1.7-8.2); BASOPHILS % (AUTO) 0.3 % (0-2); EOSINOPHILS % (AUTO) 0.1 % (0-6); HEMOGLOBIN 11.9 g/dL (12.0-15.5); LYMPHOCYTES % (AUTO) 9.5 % (13-45); MEAN CORPUSCULAR HEMOGLOBIN 30.5 pg (27.0-33.4); MEAN CORPUSCULAR HGB CONC 34.9 g/dL (32.0-36.0); MEAN CORPUSCULAR VOLUME 87 fl (80-97); MONOCYTES % (AUTO) 5.3 % (3-13); PLATELET COUNT 226 10^3/uL (150-450); RED BLOOD COUNT 3.88 10^6/uL (3.72-5.28); RED CELL DISTRIBUTION WIDTH 14.6 % (11.5-14.0); SEGMENTED NEUTROPHILS % (AUTO) 84.8 % (42-78); TOTAL CELLS COUNTED % (AUTO) 100 %; WHITE BLOOD COUNT 15.2 10^3/uL (4.0-10.5)
[2020-01-01] MEDS ORDERED: OXYTOCIN/0.9 % SODIUM CHLORIDE 30 UNIT/500 ML RTUINJ IV PRN (01:14)
[2020-01-01] MEDS ORDERED: PROMETHAZINE HCL 25 MG TABLET PO PRN (01:14)
[2020-01-01] MEDS ORDERED: ACETAMINOPHEN WITH CODEINE #3 TABLET PO PRN ×2 (01:14)
[2020-01-01] MEDS ORDERED: DIBUCAINE 1% OINTMENT 28 GM TP PRN (01:14)
[2020-01-01] MEDS ORDERED: GLYCERIN/WITCH HAZEL LEAF 1 EACH MED..WIPE TP PRN (01:14)
[2020-01-01] MEDS ORDERED: MAGNESIUM HYDROXIDE SUSP 30 ML UDCUP PO PRN (01:14)
[2020-01-01] MEDS ORDERED: MEASLES,MUMPS&RUBELLA VACC/PF 0.5 ML VIAL SUBCUT PRN ×2 (01:14→15:30)
[2020-01-01] MEDS ORDERED: NA PHOS,M-B/NA PHOS,DI-BA (ADULT) 133 ML ENEMA PR PRN (01:14)
[2020-01-01] MEDS ORDERED: ZOLPIDEM TARTRATE 5 MG TABLET PO PRN (01:14)
[2020-01-01] MEDS ORDERED: BENZOCAINE/MENTHOL AEROSOL SPRAY 56 ML TOP PRN (01:14)
[2020-01-01] MEDS ORDERED: DIPHENHYDRAMINE HCL 25 MG CAPSULE PO PRN (01:14)
[2020-01-01] MEDS ORDERED: PSEUDOEPHEDRINE HCL 30 MG TABLET PO PRN (01:14)
[2020-01-01] MEDS ORDERED: PROMETHAZINE HCL 25 MG SUPP.RECT PR PRN (01:14)
[2020-01-01] MEDS ORDERED: PROMETHAZINE HCL INJ 25 MG/1 ML VIAL IV PRN ×2 (01:14→15:30)
[2020-01-01] MEDS ORDERED: DIPH/PERTUSS(ACELL)/TETANUS VAC/PF 0.5 ML SYR (>=10YO) IM PRN ×2 (01:14→15:30)
[2020-01-01] MEDS ORDERED: ACETAMINOPHEN 650 MG SUPP.RECT PR PRN (01:14)
[2020-01-01] MEDS ORDERED: MISOPROSTOL 0.2 MG TABLET PR ONE (02:33)
[2020-01-01] MEDS ORDERED: PENICILLIN G POTASSIUM 2,500,000 UNIT in DEXTROSE 5%-WATER 50 ML IV SCH (04:33)
[2020-01-01] MEDS ORDERED: IBUPROFEN 800 MG TABLET PO SCH (06:00)
[2020-01-01] MEDS: PRENATAL VITAMIN W DHA CAPSULE PO SCH (10:22)
[2020-01-01] MEDS: FAMOTIDINE 20 MG TABLET PO SCH ×2 (10:23→22:02)
[2020-01-01] MEDS: FERROUS SULFATE 325 MG TABLET PO SCH ×2 (10:24→17:48)
[2020-01-01] MEDS: DOCUSATE SODIUM 100 MG CAPSULE PO SCH ×2 (10:24→17:48)
[2020-01-01] MEDS: IBUPROFEN 800 MG TABLET PO SCH ×2 (10:25→17:47)
--- NOTE | 2020-01-01 14:47 | PDOC PROGRESS REPORT ---
Subjective-OB Progress Note for:: 01/01/20 Subjective: 34yo G7 now P6 s/p delivery day. Ambulating and voiding without difficulty. Reports pain well controlled with medication, denies any concerns at this time, would like early discharge if at all possible Physical Exam (OB) Vital Signs: Temp Pulse Resp BP Pulse Ox 98.3 F 75 22 H 119/60 97 01/01/20 08:04 01/01/20 08:04 01/01/20 08:04 01/01/20 08:04 01/01/20 08:04 Intake & Output 12/31/19 01/01/20 01/02/20 06:59 06:59 06:59 Output Total 400 Balance -400 Weight 67.9 kg - General General Appearance: Appears well In distress: None - Episiotomy/Laceration Site Condition: N/A - Lochia Lochia Amount: Small 10-25 ml Lochia Color: Rubra/Red - Abdomen Description: Soft Fundal Description: Firm Fundal Height: u/u - u/2 - Respiratory Respiratory Status: No respiratory distress - Extremities Upper extremity: Normal inspection Lower extremities: Normal inspection - Neurological Cognition: Normal Orientation: AAOx4 - Psychological Associated symptoms: Normal affect, Normal mood Objective-Diagnostic Laboratory: 01/01/20 00:42 01/01/20 01/01/20 00:42 00:42 WBC 15.2 H RBC 3.88 Hgb 11.9 L Hct 34.0 L MCV 87 MCH 30.5 MCHC 34.9 RDW 14.6 H Plt Count 226 Seg Neutrophils % 84.8 H Blood Type A POSITIVE Antibody Screen NEGATIVE Assessment and Plan(PN) - Assessment and Plan (1) Delivery normal Is this a current diagnosis for this admission?: Yes Plan: routine pp care (2) Labor, precipitous, delivered Is this a current diagnosis for this admission?: Yes Plan: delivered (3) Positive GBS test Is this a current diagnosis for this admission?: Yes Plan: delivered - Time Spent with Patient Time with patient: Less than 15 minutes Medications reviewed and adjusted accordingly: Yes - Disposition Anticipated Discharge: Home Within: within 48 hours
[2020-01-02] MEDS: IBUPROFEN 800 MG TABLET PO SCH ×3 (01:02→17:36)
[2020-01-02 06:56] LABS: HEMATOCRIT 31.3 % (36.0-47.0); HEMOGLOBIN 10.8 g/dL (12.0-15.5); MEAN CORPUSCULAR HEMOGLOBIN 30.8 pg (27.0-33.4); MEAN CORPUSCULAR HGB CONC 34.4 g/dL (32.0-36.0); MEAN CORPUSCULAR VOLUME 90 fl (80-97); PLATELET COUNT 176 10^3/uL (150-450); RED BLOOD COUNT 3.49 10^6/uL (3.72-5.28); RED CELL DISTRIBUTION WIDTH 14.5 % (11.5-14.0); WHITE BLOOD COUNT 10.7 10^3/uL (4.0-10.5)
[2020-01-02] MEDS: SENNOSIDES/DOCUSATE 8.6-50 MG 1 EACH TABLET PO SCH ×2 (10:11→11:38)
[2020-01-02] MEDS: FAMOTIDINE 20 MG TABLET PO SCH ×2 (10:11→21:41)
[2020-01-02] MEDS: PRENATAL VITAMIN W DHA CAPSULE PO SCH (10:11)
[2020-01-02] MEDS: FERROUS SULFATE 325 MG TABLET PO SCH ×2 (10:11→17:34)
[2020-01-02] MEDS: DOCUSATE SODIUM 100 MG CAPSULE PO SCH ×2 (10:12→17:35)
--- NOTE | 2020-01-02 12:05 | PDOC PROGRESS REPORT ---
Subjective-OB Progress Note for:: 01/02/20 Subjective: reports bleeding slowing, pain controlled with current meds. denies needs Physical Exam (OB) Vital Signs: Temp Pulse Resp BP Pulse Ox 97.8 F 65 18 118/57 L 98 01/02/20 07:17 01/02/20 07:17 01/02/20 07:17 01/02/20 07:17 01/02/20 07:17 Intake & Output 01/01/20 01/02/20 01/03/20 06:59 06:59 06:59 Output Total 400 Balance -400 Weight 67.9 kg - Abdomen Description: Soft Hernia Present: No Fundal Description: Firm Fundal Height: u/3 - u/4 - Abdominal Distension: No distension Tenderness: Nontender - Extremities Lower extremities: Davide's sign - neg Calf: Normal, Nontender Objective-Diagnostic Laboratory: 01/02/20 06:27 01/02/20 06:27 WBC 10.7 H RBC 3.49 L Hgb 10.8 L Hct 31.3 L MCV 90 MCH 30.8 MCHC 34.4 RDW 14.5 H Plt Count 176 Assessment and Plan(PN) - Assessment and Plan (1) Acute blood loss anemia Is this a current diagnosis for this admission?: Yes (2) Delivery normal Is this a current diagnosis for this admission?: Yes (3) Positive GBS test Is this a current diagnosis for this admission?: Yes - Time Spent with Patient Time with patient: Less than 15 minutes Medications reviewed and adjusted accordingly: Yes - Disposition Anticipated Discharge: Home Within: within 24 hours
[2020-01-03] MEDS: IBUPROFEN 800 MG TABLET PO SCH ×2 (02:15→10:01)
[2020-01-03] MEDS: PRENATAL VITAMIN W DHA CAPSULE PO SCH (10:00)
[2020-01-03] MEDS: FERROUS SULFATE 325 MG TABLET PO SCH (10:03)
[2020-01-03] MEDS: FAMOTIDINE 20 MG TABLET PO SCH (10:03)
[2020-01-03] MEDS: DOCUSATE SODIUM 100 MG CAPSULE PO SCH (10:03)
[2020-01-03] MEDS: SENNOSIDES/DOCUSATE 8.6-50 MG 1 EACH TABLET PO SCH (10:03)
--- NOTE | 2020-01-03 12:06 | PDOC DISCHARGE SUMMARY ---
Impression - Admit/DC Date/PCP Admission Date/Primary Care Provider: 01/01/20 00:16 YRN SOW MD Discharge Date: 01/03/20 - Discharge Diagnosis (1) Acute blood loss anemia Is this a current diagnosis for this admission?: Yes (2) Delivery normal Is this a current diagnosis for this admission?: Yes (3) Positive GBS test Is this a current diagnosis for this admission?: Yes - Additional Information Discharge Diet: Regular Discharge Activity: Balance Activity w/Rest, Pelvic Rest Referrals: YRN SOW MD [Primary Care Provider] - Prescriptions: Ibuprofen [Motrin 800 mg Tablet] 800 mg PO Q8HP PRN #60 tablet PRN Reason: Home Medications: Ibuprofen [Motrin 800 mg Tablet] 800 mg PO Q8HP PRN #60 tablet 01/03/20 Vit/Dha [ Multi + Dha Capsule] 1 cap PO DAILY capsule 01/03/20 Results Laboratory Results: WBC 10.7 10^3/uL (4.0-10.5) H 01/02/20 06:27 RBC 3.49 10^6/uL (3.72-5.28) L 01/02/20 06:27 Hgb 10.8 g/dL (12.0-15.5) L 01/02/20 06:27 Hct 31.3 % (36.0-47.0) L 01/02/20 06:27 MCV 90 fl (80-97) 01/02/20 06:27 MCH 30.8 pg (27.0-33.4) 01/02/20 06:27 MCHC 34.4 g/dL (32.0-36.0) 01/02/20 06:27 RDW 14.5 % (11.5-14.0) H 01/02/20 06:27 Plt Count 176 10^3/uL (150-450) 01/02/20 06:27 Lymph % (Auto) 9.5 % (13-45) L 01/01/20 00:42 Lee % (Auto) 5.3 % (3-13) 01/01/20 00:42 Eos % (Auto) 0.1 % (0-6) 01/01/20 00:42 Baso % (Auto) 0.3 % (0-2) 01/01/20 00:42 Absolute Neuts (auto) 12.9 10^3/uL (1.7-8.2) H 01/01/20 00:42 Absolute Lymphs (auto) 1.4 10^3/uL (0.5-4.7) 01/01/20 00:42 Absolute Monos (auto) 0.8 10^3/uL (0.1-1.4) 01/01/20 00:42 Absolute Eos (auto) 0.0 10^3/uL (0.0-0.6) 01/01/20 00:42 Absolute Basos (auto) 0.1 10^3/uL (0.0-0.2) 01/01/20 00:42 Seg Neutrophils % 84.8 % (42-78) H 01/01/20 00:42 RPR NONREACTIVE (NONREACTIVE) 01/01/20 00:42 Blood Type A POSITIVE 01/01/20 00:42 Antibody Screen NEGATIVE 01/01/20 00:42 Plan Plan of Treatment: follow up in 4 weeks at [facility] for post check
[2020-01-03 13:34] VITALS: BP 118/64
--- NOTE | 2020-01-07 09:37 | Delivery Summary ---
Del Sum A-C Datetime Report Generated by CPN: 01/07/2020 09:37 DELIVERY PERSONNEL DELIVERY PERSONNEL: [id number] Delivery Doctor:: Tuan Patricia MD Labor and Delivery Nurse:: Evie Bacon RN Typewriter Operator Automatic:: Pricilla Rosario RN Nursery Nurse:: Merced Villa RN Tanker Serviceman/SENIOR FOREMAN: Joanna Deng, ST MATERNAL INFORMATION Delivery Anesthesia: None Medications After Delivery: Pitocin 30 Units in 500ml NS/D5W Meds After Delivery Comment: Pitocin 30 units/500 ml NS Delivery QBL: 50 Maternal Complications: Precipitous Labor (<3hrs) LABOR SUMMARY EDC: 12/21/2019 00:00 No. Babies in Womb: 1 Attempted: No Labor Anesthesia: None LABOR INFORMATION Reason for Induction: Not Applicable Onset of Labor: 12/31/2019 06:00 Complete Dilatation: 01/01/2020 00:43 Cervical Ripening Agents: Cytotec @ 1000 CT Oxytocin: N/A Group B Beta Strep: Positive Antibiotics # of Doses: 1 Antibiotics Time of Last Dose: 0027 Name of Antibiotic Given: PCN MEMBRANES Membranes Rupture Method: Artificial Rupture of Membranes: 01/01/2020 00:43 Length of Rupture (hr): 0.30 Amniotic Fluid Color: Clear Amniotic Fluid Amount: Small Amniotic Fluid Odor: Normal STAGES OF LABOR Stage 1 hr: 18 Stage 1 min: 43 Stage 2 hr: 0 Stage 2 min: 18 Stage 3 hr: 0 Stage 3 min: 5 Total Time in Labor hr: 19 Total Time in Labor min: 6 VAGINAL DELIVERY Episiotomy: None Laceration #1: None Laceration Extension #1: N/A Laceration Repair: Not Applicable Sponge Count Correct: N/A CSECTION DELIVERY Primary Indication: N/A Secondary Indication: N/A CSection Incidence: N/A Labor: N/A Elective: N/A CSection Incision: N/A BABY A INFORMATION Infant Delivery Date/Time: 01/01/2020 01:01 Method of Delivery: Vaginal Method of Delivery: Vaginal Nurse Controlled Delivery: No Born in Route : No : N/A Forceps: N/A Vacuum Extraction: N/A Shoulder Dystocia : No PRESENTATION/POSITION BABY A Presentation: Cephalic Cephalic Presentation: Face Vertex Position: Left Occipital Posterior Breech Presentation: N/A PLACENTA INFORMATION BABY A Placenta Delivery Time : 01/01/2020 01:06 Placenta Method of Delivery: Spontaneous Placenta Status: Delivered SCORES BABY A Heart Rate 1 min: >100 bpm Resp Effort 1 min: Good Cry Reflex Irritability 1 min: Cough or Sneeze or Pulls Away Muscle Tone 1 min: Active Motion Color 1 min: Blue/Pale Resuscitation Effort 1 min: Tactile Stimulation SCORE 1 MIN: 8 Heart Rate 5 min: >100 bpm Resp Effort 5 min: Good Cry Reflex Irritability 5 min: Cough or Sneeze or Pulls Away Muscle Tone 5 min: Active Motion Color 5 min: Body [place], Extremities Blue Resuscitation Effort 5 min: Tactile Stimulation SCORE 5 MIN: 9 INFANT INFORMATION BABY A Gestational Age at Delivery: 41.4 Gestational Status: Late Term- 41- 41.6 Weeks Outcome : Liveborn Condition : Stable Infant Sex: Female Infant Sex: Female IDENTIFICATION BABY A Infant Verification Date/Time: 01/01/2020 01:11 ID Band Number: [id number] Mother's Name Verified: Yes Infant RN Verifying Infant: , RN/A.Magui, RN CORD INFORMATION BABY A No. Cord Vessels: 3 Nuchal Cord : Around Neck x1, Tight Cord Blood Taken: Yes-For Storage (Mom's Blood type +) ASSESSMENT BABY A Complications: None Physical Findings at Delivery: Within Normal Limits Infant Respirations: Appears Normal Skin to Skin: Yes Skin to Skin Time (min): 30 Research Nutritionist/ALS Called : No Care By: ANN Melissa Transferred To: Remains with Mother SIGNATURES Signature: with User ID: [email or web address]
== END 2020-01-03 14:04 | disposition home or self-care (01) | DRG 807 ==
LOC: LC 23:58 → LR 01-01 00:16 → 2S 01-01 03:35
PROVIDERS: ADMIT Obstetrics & Gynecology Gynecology; ATTEND Obstetrics & Gynecology Gynecology
PROC: 10E0XZZ Delivery of Products of Conception, External Approach (ICD-10-PCS; principal; 2020-01-01)
PROC: 10907ZC Drainage of Amniotic Fluid, Therapeutic from Products of Conception, Via Natural or Artificial Opening (ICD-10-PCS; 2020-01-01)
DX: O62.3 Precipitate labor (principal); Z37.0 Single live birth; O48.0 Post-term pregnancy; O69.1XX0 Labor and delivery complicated by cord around neck, with compression, not applicable or unspecified; Z88.1 Allergy status to other antibiotic agents; Z3A.41 41 weeks gestation of pregnancy
CPT/HCPCS: 36415; 85025; 85027; 86592; 86850; 86900; 86901; J2540; J3490; J7060